=== PATIENT | male | born 1965 | race Hispanic/Latino ===

== ENCOUNTER 2019-08-24 11:12 | Inpatient (IN) | payer BC, OTHER ==
[~2019-08-24] VITALS: Ht 175.3 cm; Wt 99.9 kg
[~2019-08-24 11:12] MED LIST: ASPIRIN81 MG PO; ENALAPRIL MALE2.5 MG PO
[2019-08-24] MEDS ORDERED: ONDANSETRON HCL INJ 2MG/ML 2ML 2 MG/ML VIAL IV STA (11:22)
[2019-08-24] MEDS ORDERED: PANTOPRAZOLE 40 MG 10ML VIAL IV STA (11:22)
[2019-08-24] MEDS ORDERED: SODIUM CHLORIDE 0.9% 1000ML 1,000 ML IV STA ×2 (11:22→13:33)
[2019-08-24] MEDS ORDERED: MORPHINE SULFATE 2 MG/ML SYR 1ML IV STA (11:22)
[2019-08-24 12:06] LABS: BASOPHILS # (AUTO) 0.1 (0.0-0.1); BASOPHILS % 0.3 % (0.0-1.0); EOSINOPHILS # (AUTO) 0.1 (0.0-0.4); EOSINOPHILS % 0.7 % (0.0-6.0); HEMATOCRIT 48.3 % (38.2-49.6); LYMPHOCYTES % 4.5 % (18.0-39.1); MEAN CORPUSCULAR HEMOGLOBIN 27.7 pg (28-32); MEAN CORPUSCULAR HGB CONC 33.1 g/dL (31-35); MEAN CORPUSCULAR VOLUME 83.7 fL (81-99); MONOCYTES % 9.6 % (4.4-11.3); NEUTROPHILS # (AUTO) 17.7 (2.1-6.9); PLATELET COUNT 246 x10e3/uL (140-360); RED BLOOD COUNT 5.77 x10e6/uL (4.3-5.7); RED CELL DISTRIBUTION WIDTH 14.1 % (11.7-14.4)
[2019-08-24 12:38] LABS: PROTHROMBIN TIME 13.8 seconds (11.9-14.5)
[2019-08-24 12:39] LABS: PARTIAL THROMBOPLASTIN TIME 28.6 seconds (23.8-35.5)
[2019-08-24 12:47] LABS: ALBUMIN 3.8 g/dL (3.5-5.0); ALBUMIN/GLOBULIN RATIO 1.1 (0.8-2.0); ANION GAP 16.9 mmol/L (8-16); CALCIUM 9.8 mg/dL (8.4-10.2); CREATININE, SERUM 1.72 mg/dL (0.72-1.25); MAGNESIUM 1.7 MG/DL (1.3-2.1); POTASSIUM 3.9 mmol/L (3.5-5.1)
[2019-08-24 12:53] LABS: CREATINE KINASE MB 1.4 ng/mL (0-5.0)
[2019-08-24] MEDS ORDERED: SODIUM CHLORIDE 0.9% 50ML 50 ML ONE (13:03)
[2019-08-24] MEDS ORDERED: IOPAMIDOL 370 MG/ML 200 ML INFUS..BTL INJ ONE (13:03)
[2019-08-24 13:06] LABS: BILIRUBIN,URINE NEGATIVE (NEGATIVE); CLARITY,URINE CLEAR (CLEAR); COLOR,URINE YELLOW (YELLOW); KETONES,URINE NEGATIVE (NEGATIVE); LEUKOCYTE ESTERASE ,URINE NEGATIVE (NEGATIVE); NITRITE,URINE NEGATIVE (NEGATIVE); PROTEIN,URINE DIPSTICK >=300 (NEGATIVE); URINE UROBILINOGEN 0.2 mg/dL (0.2 - 1)
[2019-08-24 13:17] LABS: BACTERIA,URINE MANY /HPF; EPITHELIAL CELLS,URINE RARE /LPF; RBC,URINE 0-5 /HPF (0-5)
[2019-08-24 13:18] LABS: YEAST,URINE FEW
--- NOTE | 2019-08-24 13:29 | NUR ---
{null, LACTIC DRAWN }
--- NOTE | 2019-08-24 13:33 | Emergency Department Note ---
History of Present Illnes History of Present Illness Chief Complaint: Abdominal Complaints History of Present Illness This is a 54 year old male .c/o abd pain Chief Complaint Comment HERE FOR DIFFUSE ABDOMINAL PAIN TO EPIGASTRIC AREA AND LOWER ABDOMEN. CLIENT REPORTS VOMITING X1 YESTERDAY, DENIES DIARRHEA, SHORTNESS OF BREATH. Historian: Patient Arrival Mode: Car Onset (how long ago): day(s) (yeterday) Radiation: Reports abdomen Severity: moderate Duration (how long): day(s) (yesterday ) Timing of current episode: constant Progression: unchanged Context: Denies recent illness, Denies recent surgery, Denies recent im mobilization, Denies recent travel, Denies trauma/injury, Denies new medications, Denies hx of DVT/PE, Denies non-compliance w/ medications, Denies other Relieving factors: none Exacerbating factors: none Associated symptoms: Denies denies other symptoms, Denies confusion, Denies chest pain, Denies cough, Denies diaphoresis, Denies fever/chills, Denies headaches, Denies loss of appetite, Denies malaise, Denies nausea/vomiting, Den ies rash, Denies seizure, Denies shortness of breath, Denies syncope, Denies weakness, Denies other Treatments prior to arrival: none Past Medical/Family History Physician Review I have reviewed the patient's past medical and family history. Any updates have been documented here. Past Medical History Recent Fever: No Clinical Suspicion of Infectio: No New/Unexplained Change in Ment: No Past Medical History: Hypertension Social History Smoking Cessation: Never Smoker Counseling Performed: No Alcohol Use: None Any Illegal Drug Use: No TB Exposure/Symptoms: No Physically hurt or threatened: No Other Any Pre-Existing Lines (PICC,: No Is patient up to date on immun: Yes Last Flu: UTD Last Pneumovax: UTD Review of Systems Review of Systems Constitutional: Reports no symptoms EENTM: Reports no symptoms Cardiovascular: Reports no symptoms Respiratory: Reports no symptoms Gastrointestinal: Reports abdominal pain Genitourinary: Reports no symptoms Musculoskeletal: Reports no symptoms Integumentary: Reports no symptoms Neurological: Reports no symptoms Psychological: Reports no symptoms Endocrine: Reports no symptoms Hematological/Lymphatic: Reports no symptoms Review of other systems All other systems reviewed and negative. Physical Exam Related Data Allergies: Coded Allergies: No Known Allergies (Unverified , 06/15/15) Triage Vital Signs Vital Signs Date Time Temp Pulse Resp B/P (MAP) Pulse Ox O2 Delivery O2 Flow Rate FiO2 08/24/19 11:21 97.5 118 16 134/89 93 Vital signs reviewed: Yes Physical Exam CONSTITUTIONAL Constitutional: Reports well-developed, Reports well-nourished HENT HENT: Reports normocephalic, Reports atraumatic, Reports oropharynx clear/moist, Reports nose normal HENT L/R: Reports left ext ear normal, Reports right ext ear normal EYES Eyes: Reports PERRL, Reports conjunctivae normal NECK Neck: Reports ROM normal PULMONARY Pulmonary: Reports effort normal, Reports other (noted o2 sat 93% rm air no tachypnea ); Denies breath sounds normal (breath sound diminished at bases mildly) CARDIOVASCULAR Cardiovascular: Reports regular rhythm, Reports heart sounds normal, Reports capillary refill normal, Reports normal rate GASTROINTESTINAL Abdominal: Reports soft; Denies nontender; Reports bowel sounds normal, Reports tender (diffusly ) GENITOURINARY Genitourinary: Reports exam deferred SKIN Skin: Reports warm, Reports dry MUSCULOSKELETAL Musculoskeletal: Reports ROM normal NEUROLOGICAL Neurological: Reports alert, Reports oriented x 3, Reports no gross motor or sensory deficits PSYCHOLOGICAL Psychological: Reports mood/affect normal, Reports judgement normal Results Laboratory Result Diagram: 08/24/19 1132 08/24/19 1132 Laboratory Laboratory Tests Test 08/24/19 14:42 08/24/19 13:29 08/24/19 12:48 08/24/19 12:24 Lactic Acid Level 2.2 mmol/L (0.5-2.0) 3.1 mmol/L (0.5-2.0) Urine Color Yellow (YELLOW) Urine Clarity Clear (CLEAR) Urine pH 6 (5 - 7) Urine Specific [place] >=1.030 (1.010-1.025) Urine Protein >=300 (NEGATIVE) Urine Glucose (UA) 2+ (NEGATIVE) Urine Ketones Negative (NEGATIVE) Urine Blood Large (NEGATIVE) Urine Nitrite Negative (NEGATIVE) Urine Bilirubin Negative (NEGATIVE) Urine Urobilinogen 0.2 mg/dL (0.2 - 1) Urine Leukocyte Esterase Negative (NEGATIVE) Urine RBC 0-5 /HPF (0-5) Urine WBC 11-20 /HPF (0-5) Urine Epithelial Cells Rare /LPF (NONE) Urine Bacteria Many /HPF (NONE) Urine Yeast Few (NONE) Test 08/24/19 11:32 White Blood Count 21.05 x10e3/uL (4.8-10.8) Red Blood Count 5.77 x10e6/uL (4.3-5.7) Hemoglobin 16.0 g/dL (14.0-18.0) Hematocrit 48.3 % (38.2-49.6) Mean Corpuscular Volume 83.7 fL (81-99) Mean Corpuscular Hemoglobin 27.7 pg (28-32) Mean Corpuscular Hemoglobin Concent 33.1 g/dL (31-35) Red Cell Distribution Width 14.1 % (11.7-14.4) Platelet Count 246 x10e3/uL (140-360) Neutrophils (%) (Auto) 84.0 % (38.7-80.0) Lymphocytes (%) (Auto) 4.5 % (18.0-39.1) Monocytes (%) (Auto) 9.6 % (4.4-11.3) Eosinophils (%) (Auto) 0.7 % (0.0-6.0) Basophils (%) (Auto) 0.3 % (0.0-1.0) Neutrophils # (Auto) 17.7 (2.1-6.9) Lymphocytes # (Auto) 1.0 (1.0-3.2) Monocytes # (Auto) 2.0 (0.2-0.8) Eosinophils # (Auto) 0.1 (0.0-0.4) Basophils # (Auto) 0.1 (0.0-0.1) Absolute Immature Granulocyte (auto 0.18 x10e3/uL (0-0.1) Differential Total Cells Counted 100 Neutrophils % (Manual) 79 % (40-74) Lymphocytes % (Manual) 8 % (19-48) Monocytes % (Manual) 9 % (3.4-9.0) Reactive Lymphocytes 4 Platelet Estimate Adequate Platelet Morphology Comment Normal Red Cell Morphology Comment Normal Prothrombin Time 13.8 seconds (11.9-14.5) Prothromb Time International Ratio 1.00 Activated Partial Thromboplast Time 28.6 seconds (23.8-35.5) Sodium Level 133 mmol/L (136-145) Potassium Level 3.9 mmol/L (3.5-5.1) Chloride Level 98 mmol/L (98-107) Carbon Dioxide Level 22 mmol/L (22-29) Anion Gap 16.9 mmol/L (8-16) Blood Urea Nitrogen 22 mg/dL (7-26) Creatinine 1.72 mg/dL (0.72-1.25) Estimat Glomerular Filtration Rate 41 ML/MIN (60-) BUN/Creatinine Ratio 13 (6-25) Glucose Level 186 mg/dL (74-118) Calcium Level 9.8 mg/dL (8.4-10.2) Magnesium Level 1.7 MG/DL (1.3-2.1) Total Bilirubin 1.2 mg/dL (0.2-1.2) Aspartate Amino Transf (AST/SGOT) 18 IU/L (5-34) Alanine Aminotransferase (ALT/SGPT) 39 IU/L (0-55) Alkaline Phosphatase 61 IU/L (40-150) Creatine Kinase 185 IU/L (30-200) Creatine Kinase MB 1.40 ng/mL (0-5.0) Troponin I 0.025 ng/mL (0-0.300) Total Protein 7.4 g/dL (6.5-8.1) Albumin 3.8 g/dL (3.5-5.0) Globulin 3.6 g/dL (2.3-3.5) Albumin/Globulin Ratio 1.1 (0.8-2.0) Triglycerides Level 151 MG/DL (0-149) Cholesterol Level 188 MD/DL (0-199) LDL Cholesterol 117 MG/DL (60-130) HDL Cholesterol 41 MG/DL (40-60) Cholesterol/HDL Ratio 4.6 (3.9-4.7) Amylase Level 682 U/L (25-125) Lipase 664 U/L (8-78) Laboratory Tests Test 08/24/19 14:42 08/24/19 13:29 08/24/19 12:48 08/24/19 12:24 Lactic Acid Level 2.2 mmol/L (0.5-2.0) 3.1 mmol/L (0.5-2.0) Urine Color Yellow (YELLOW) Urine Clarity Clear (CLEAR) Urine pH 6 (5 - 7) Urine Specific [place] >=1.030 (1.010-1.025) Urine Protein >=300 (NEGATIVE) Urine Glucose (UA) 2+ (NEGATIVE) Urine Ketones Negative (NEGATIVE) Urine Blood Large (NEGATIVE) Urine Nitrite Negative (NEGATIVE) Urine Bilirubin Negative (NEGATIVE) Urine Urobilinogen 0.2 mg/dL (0.2 - 1) Urine Leukocyte Esterase Negative (NEGATIVE) Urine RBC 0-5 /HPF (0-5) Urine WBC 11-20 /HPF (0-5) Urine Epithelial Cells Rare /LPF (NONE) Urine Bacteria Many /HPF (NONE) Urine Yeast Few (NONE) Test 08/24/19 11:32 White Blood Count 21.05 x10e3/uL (4.8-10.8) Red Blood Count 5.77 x10e6/uL (4.3-5.7) Hemoglobin 16.0 g/dL (14.0-18.0) Hematocrit 48.3 % (38.2-49.6) Mean Corpuscular Volume 83.7 fL (81-99) Mean Corpuscular Hemoglobin 27.7 pg (28-32) Mean Corpuscular Hemoglobin Concent 33.1 g/dL (31-35) Red Cell Distribution Width 14.1 % (11.7-14.4) Platelet Count 246 x10e3/uL (140-360) Neutrophils (%) (Auto) 84.0 % (38.7-80.0) Lymphocytes (%) (Auto) 4.5 % (18.0-39.1) Monocytes (%) (Auto) 9.6 % (4.4-11.3) Eosinophils (%) (Auto) 0.7 % (0.0-6.0) Basophils (%) (Auto) 0.3 % (0.0-1.0) Neutrophils # (Auto) 17.7 (2.1-6.9) Lymphocytes # (Auto) 1.0 (1.0-3.2) Monocytes # (Auto) 2.0 (0.2-0.8) Eosinophils # (Auto) 0.1 (0.0-0.4) Basophils # (Auto) 0.1 (0.0-0.1) Absolute Immature Granulocyte (auto 0.18 x10e3/uL (0-0.1) Differential Total Cells Counted 100 Neutrophils % (Manual) 79 % (40-74) Lymphocytes % (Manual) 8 % (19-48) Monocytes % (Manual) 9 % (3.4-9.0) Reactive Lymphocytes 4 Platelet Estimate Adequate Platelet Morphology Comment Normal Red Cell Morphology Comment Normal Prothrombin Time 13.8 seconds (11.9-14.5) Prothromb Time International Ratio 1.00 Activated Partial Thromboplast Time 28.6 seconds (23.8-35.5) Sodium Level 133 mmol/L (136-145) Potassium Level 3.9 mmol/L (3.5-5.1) Chloride Level 98 mmol/L (98-107) Carbon Dioxide Level 22 mmol/L (22-29) Anion Gap 16.9 mmol/L (8-16) Blood Urea Nitrogen 22 mg/dL (7-26) Creatinine 1.72 mg/dL (0.72-1.25) Estimat Glomerular Filtration Rate 41 ML/MIN (60-) BUN/Creatinine Ratio 13 (6-25) Glucose Level 186 mg/dL (74-118) Calcium Level 9.8 mg/dL (8.4-10.2) Magnesium Level 1.7 MG/DL (1.3-2.1) Total Bilirubin 1.2 mg/dL (0.2-1.2) Aspartate Amino Transf (AST/SGOT) 18 IU/L (5-34) Alanine Aminotransferase (ALT/SGPT) 39 IU/L (0-55) Alkaline Phosphatase 61 IU/L (40-150) Creatine Kinase 185 IU/L (30-200) Creatine Kinase MB 1.40 ng/mL (0-5.0) Troponin I 0.025 ng/mL (0-0.300) Total Protein 7.4 g/dL (6.5-8.1) Albumin 3.8 g/dL (3.5-5.0) Globulin 3.6 g/dL (2.3-3.5) Albumin/Globulin Ratio 1.1 (0.8-2.0) Triglycerides Level 151 MG/DL (0-149) Cholesterol Level 188 MD/DL (0-199) LDL Cholesterol 117 MG/DL (60-130) HDL Cholesterol 41 MG/DL (40-60) Cholesterol/HDL Ratio 4.6 (3.9-4.7) Amylase Level 682 U/L (25-125) Lipase 664 U/L (8-78) Laboratory Tests Test 08/24/19 12:48 08/24/19 12:24 08/24/19 11:32 Urine Color Yellow (YELLOW) Urine Clarity Clear (CLEAR) Urine pH 6 (5 - 7) Urine Specific [place] >=1.030 (1.010-1.025) Urine Protein >=300 (NEGATIVE) Urine Glucose (UA) 2+ (NEGATIVE) Urine Ketones Negative (NEGATIVE) Urine Blood Large (NEGATIVE) Urine Nitrite Negative (NEGATIVE) Urine Bilirubin Negative (NEGATIVE) Urine Urobilinogen 0.2 mg/dL (0.2 - 1) Urine Leukocyte Esterase Negative (NEGATIVE) Urine RBC 0-5 /HPF (0-5) Urine WBC 11-20 /HPF (0-5) Urine Epithelial Cells Rare /LPF (NONE) Urine Bacteria Many /HPF (NONE) Urine Yeast Few (NONE) White Blood Count 21.05 x10e3/uL (4.8-10.8) Red Blood Count 5.77 x10e6/uL (4.3-5.7) Hemoglobin 16.0 g/dL (14.0-18.0) Hematocrit 48.3 % (38.2-49.6) Mean Corpuscular Volume 83.7 fL (81-99) Mean Corpuscular Hemoglobin 27.7 pg (28-32) Mean Corpuscular Hemoglobin Concent 33.1 g/dL (31-35) Red Cell Distribution Width 14.1 % (11.7-14.4) Platelet Count 246 x10e3/uL (140-360) Neutrophils (%) (Auto) 84.0 % (38.7-80.0) Lymphocytes (%) (Auto) 4.5 % (18.0-39.1) Monocytes (%) (Auto) 9.6 % (4.4-11.3) Eosinophils (%) (Auto) 0.7 % (0.0-6.0) Basophils (%) (Auto) 0.3 % (0.0-1.0) Neutrophils # (Auto) 17.7 (2.1-6.9) Lymphocytes # (Auto) 1.0 (1.0-3.2) Monocytes # (Auto) 2.0 (0.2-0.8) Eosinophils # (Auto) 0.1 (0.0-0.4) Basophils # (Auto) 0.1 (0.0-0.1) Absolute Immature Granulocyte (auto 0.18 x10e3/uL (0-0.1) Prothrombin Time 13.8 seconds (11.9-14.5) Prothromb Time International Ratio 1.00 Activated Partial Thromboplast Time 28.6 seconds (23.8-35.5) Sodium Level 133 mmol/L (136-145) Potassium Level 3.9 mmol/L (3.5-5.1) Chloride Level 98 mmol/L (98-107) Carbon Dioxide Level 22 mmol/L (22-29) Anion Gap 16.9 mmol/L (8-16) Blood Urea Nitrogen 22 mg/dL (7-26) Creatinine 1.72 mg/dL (0.72-1.25) Estimat Glomerular Filtration Rate 41 ML/MIN (60-) BUN/Creatinine Ratio 13 (6-25) Glucose Level 186 mg/dL (74-118) Calcium Level 9.8 mg/dL (8.4-10.2) Magnesium Level 1.7 MG/DL (1.3-2.1) Total Bilirubin 1.2 mg/dL (0.2-1.2) Aspartate Amino Transf (AST/SGOT) 18 IU/L (5-34) Alanine Aminotransferase (ALT/SGPT) 39 IU/L (0-55) Alkaline Phosphatase 61 IU/L (40-150) Creatine Kinase 185 IU/L (30-200) Creatine Kinase MB 1.40 ng/mL (0-5.0) Troponin I 0.025 ng/mL (0-0.300) Total Protein 7.4 g/dL (6.5-8.1) Albumin 3.8 g/dL (3.5-5.0) Globulin 3.6 g/dL (2.3-3.5) Albumin/Globulin Ratio 1.1 (0.8-2.0) Amylase Level 682 U/L (25-125) Lipase 664 U/L (8-78) Laboratory Tests Test 08/24/19 12:48 08/24/19 12:24 08/24/19 11:32 Urine Color Yellow (YELLOW) Urine Clarity Clear (CLEAR) Urine pH 6 (5 - 7) Urine Specific [place] >=1.030 (1.010-1.025) Urine Protein >=300 (NEGATIVE) Urine Glucose (UA) 2+ (NEGATIVE) Urine Ketones Negative (NEGATIVE) Urine Blood Large (NEGATIVE) Urine Nitrite Negative (NEGATIVE) Urine Bilirubin Negative (NEGATIVE) Urine Urobilinogen 0.2 mg/dL (0.2 - 1) Urine Leukocyte Esterase Negative (NEGATIVE) Urine RBC 0-5 /HPF (0-5) Urine WBC 11-20 /HPF (0-5) Urine Epithelial Cells Rare /LPF (NONE) Urine Bacteria Many /HPF (NONE) Urine Yeast Few (NONE) White Blood Count 21.05 x10e3/uL (4.8-10.8) Red Blood Count 5.77 x10e6/uL (4.3-5.7) Hemoglobin 16.0 g/dL (14.0-18.0) Hematocrit 48.3 % (38.2-49.6) Mean Corpuscular Volume 83.7 fL (81-99) Mean Corpuscular Hemoglobin 27.7 pg (28-32) Mean Corpuscular Hemoglobin Concent 33.1 g/dL (31-35) Red Cell Distribution Width 14.1 % (11.7-14.4) Platelet Count 246 x10e3/uL (140-360) Neutrophils (%) (Auto) 84.0 % (38.7-80.0) Lymphocytes (%) (Auto) 4.5 % (18.0-39.1) Monocytes (%) (Auto) 9.6 % (4.4-11.3) Eosinophils (%) (Auto) 0.7 % (0.0-6.0) Basophils (%) (Auto) 0.3 % (0.0-1.0) Neutrophils # (Auto) 17.7 (2.1-6.9) Lymphocytes # (Auto) 1.0 (1.0-3.2) Monocytes # (Auto) 2.0 (0.2-0.8) Eosinophils # (Auto) 0.1 (0.0-0.4) Basophils # (Auto) 0.1 (0.0-0.1) Absolute Immature Granulocyte (auto 0.18 x10e3/uL (0-0.1) Prothrombin Time 13.8 seconds (11.9-14.5) Prothromb Time International Ratio 1.00 Activated Partial Thromboplast Time 28.6 seconds (23.8-35.5) Sodium Level 133 mmol/L (136-145) Potassium Level 3.9 mmol/L (3.5-5.1) Chloride Level 98 mmol/L (98-107) Carbon Dioxide Level 22 mmol/L (22-29) Anion Gap 16.9 mmol/L (8-16) Blood Urea Nitrogen 22 mg/dL (7-26) Creatinine 1.72 mg/dL (0.72-1.25) Estimat Glomerular Filtration Rate 41 ML/MIN (60-) BUN/Creatinine Ratio 13 (6-25) Glucose Level 186 mg/dL (74-118) Calcium Level 9.8 mg/dL (8.4-10.2) Magnesium Level 1.7 MG/DL (1.3-2.1) Total Bilirubin 1.2 mg/dL (0.2-1.2) Aspartate Amino Transf (AST/SGOT) 18 IU/L (5-34) Alanine Aminotransferase (ALT/SGPT) 39 IU/L (0-55) Alkaline Phosphatase 61 IU/L (40-150) Creatine Kinase 185 IU/L (30-200) Creatine Kinase MB 1.40 ng/mL (0-5.0) Troponin I 0.025 ng/mL (0-0.300) Total Protein 7.4 g/dL (6.5-8.1) Albumin 3.8 g/dL (3.5-5.0) Globulin 3.6 g/dL (2.3-3.5) Albumin/Globulin Ratio 1.1 (0.8-2.0) Amylase Level 682 U/L (25-125) Lipase 664 U/L (8-78) Lab results reviewed: Yes Imaging Impressions IMPRESSION: 1. Bibasilar atelectasis with minimal left pleural effusion. 2. Acute pancreatitis without evidence of pseudocyst formation. 3. Hepatomegaly. Signed by: Santosh Walker on 08/24/2019 1:56 PM Dictated By: SANTOSH WALKER MD [id number] Transcribed By: JOSE ALBERTO on 08/24/19 1356 IMPRESSION: 1. Bibasilar atelectasis with minimal left pleural effusion. 2. Acute pancreatitis without evidence of pseudocyst formation. 3. Hepatomegaly. 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 Date: Aug 24, 2019 Time: 17:00 Prior ECG tracings: reviewed Rhythm: sinus tachycardia Rate: tachycardia BPM: 113 QRS axis: normal Assessment & Plan Medical Decision Making MDM This is a 54 year old male .c/o abd pain epigastirc pain n/v x 1 on set yesterday D/D pne covid cholecystitis pancreatitis acs gastritis sbo Reassessment Reassessment pt meets SIRs criteria hr 118 wbc 21 @1134 pt medicated w/ zosyn ordered 1334 suspect sepsis - source abd severe sepsis @ 1358 lactic 3.1 ns bolus given @ 1503 2nd lactic 2.2 discussed lab rad results plan of care w/pt and need for admit spoke w/ Dr Engle will admit spoke w/ Dr Daria Quevedo will consult Assessment & Plan Final Impression: (1) Pancreatitis (2) UTI (urinary tract infection) Depart Disposition: ADMITTED Last Vital Signs Date Time Temp Pulse Resp B/P (MAP) Pulse Ox O2 Delivery O2 Flow Rate FiO2 08/24/19 12:07 104 18 126/81 96 08/24/19 11:21 97.5 Home Meds Reported Medications Aspirin (ASPIRIN) 81 Mg Tab.chew, 81 MG PO DAILY 06/16/15 Enalapril Maleate (ENALAPRIL MALEATE) 2.5 Mg Tablet, 5 MG PO BID 06/15/15 Medications in the ED Pantoprazole Sodium 40 mg ONCE STAT IV Last administered on 08/24/19at 12:11; Admin Dose 40 MG; Start 08/24/19 at 11:22; Stop 08/24/19 at 11:43; Status DC Morphine Sulfate 4 mg ONCE STAT IV Last administered on 08/24/19at 12:11; Admin Dose 4 MG; Start 08/24/19 at 11:22; Stop 08/24/19 at 11:43; Status DC Ondansetron HCl 4 mg ONCE STAT IV Last administered on 08/24/19at 12:11; Admin Dose 4 MG; Start 08/24/19 at 11:22; Stop 08/24/19 at 11:43; Status DC Sodium Chloride 1,000 ml @ 0 mls/hr Q0M STAT IV Last administered on 08/24/19at 12:11; Admin Dose 1,000 MLS/HR; Start 08/24/19 at 11:22; Stop 08/24/19 at 11:25; Status DC Sodium Chloride 50 ml @ ud STK-MED ONCE .ROUTE ; Start 08/24/19 at 13:03; Stop 08/24/19 at 12:58; Status DC Iopamidol 74,000 mg STK-MED ONCE INJ ; Start 08/24/19 at 13:03; Stop 08/24/19 at 12:58; Status DC JAME JAMESON MD Aug 24, 2019 13:33
[2019-08-24] MEDS: PIPER-TAZ 3.375 GM 50 ML IV SCH ×2 (13:37→23:29)
[2019-08-24 13:43] LABS: LYMPHOCYTES % (MANUAL) 8 % (19-48); MONOCYTES % (MANUAL) 9 % (3.4-9.0); NEUTROPHILS % (MANUAL) 79 % (40-74); PLATELET ESTIMATE ADEQUATE; PLATELET MORPHOLOGY COMMENT NORMAL; RBC MORPHOLOGY COMMENT NORMAL
--- NOTE | 2019-08-24 14:00 | Diagnostic Imaging Report ---
CT of the chest, abdomen, and pelvis, with contrast, 08/24/2019. History: Shortness of breath, abdominal pain, nausea and vomiting. Comparison: None available. Technique: Technique: Multidetector CT scanning of the chest, abdomen, and pelvis was performed from the level of the lung apices to the inferior pubic rami after intravenous administration of contrast. Coronal and sagittal multiplanar reformations were obtained. RADIATION DOSE: Total DLP: 810 mGy*cm Dose modulation, iterative reconstruction, and/or weight based adjustment of the mA/kV was utilized to reduce the radiation dose to as low as reasonably achievable. Discussion: CHEST: The atria, ventricles, aorta, and main pulmonary artery are normal in size. The thyroid is unremarkable. There is no evidence of axillary or mediastinal adenopathy. Calcified mediastinal nodes are present. Linear opacities are present at the lung bases with minimal left pleural effusion. There is no evidence of consolidation or suspicious nodule. ABDOMEN: There is ill-defined low-density in the midportion of the pancreas body with adjacent fat stranding and peripancreatic fluid which extends along the paracolic gutters into the pelvis. There is no focal fluid collection. The pancreas enhances normally. The adjacent splenic artery and vein are patent. Portacaval lymph nodes are present measuring up to 1 cm. Liver is enlarged measuring over 20 cm in length. The gallbladder, biliary tree, spleen, adrenal glands, and kidneys are normal. The hepatic vein, portal vein, and splenic vein are patent. The abdominal aorta is within normal limits for size. There is no bowel dilatation. There is no evidence of adenopathy or free fluid. PELVIS: The bladder, prostate, and seminal vesicles are normal in appearance. There is no evidence of free fluid or adenopathy. BONES AND SOFT TISSUES: Degenerative changes are present throughout the lumbar spine without evidence of lytic or sclerotic lesion. IMPRESSION: 1. Bibasilar atelectasis with minimal left pleural effusion. 2. Acute pancreatitis without evidence of pseudocyst formation. 3. Hepatomegaly. Signed by: Rufus Walker on 08/24/2019 1:56 PM
[2019-08-24] MEDS ORDERED: SODIUM CHLORIDE 0.9% 500ML 500 ML IV ONE (14:15)
[2019-08-24] MEDS ORDERED: MORPHINE SULFATE 2 MG/ML SYR 1ML IV PRN (14:30)
[2019-08-24 15:06] LABS: CHOL/HDL RATIO 4.6 (3.9-4.7)
[2019-08-24] MEDS: METRONIDAZOLE 500MG/NS 100ML 100 ML IV SCH ×2 (15:30→21:10)
[2019-08-24] MEDS: SODIUM CHLORIDE 0.9% 1000ML 1,000 ML IV SCH ×2 (15:30→21:10)
--- OUTSIDE RECORDS SUMMARY | 2019-08-24 15:45 | XMS REPORT | Continuity of Care Document ---
Author Author [facility] Organization [facility] Address [address] [place] [id number] Phone Unavailable Care Team Providers Care Case Folder Name Role Phone Natalie JAMESON Attphys Unavailable Problems This patient has no known problems. Allergies, Adverse Reactions, Alerts This patient has no known allergies or adverse reactions. Medications This patient has no known medications. Procedures This patient has no known procedures. Results Test Description Test Time Test Comments Results Result Comments Source CT ABDOMEN/PELVIS W 2019-08-24 13:37:00 [place] [address] Patient Name: MISAEL BLACKMAN MR #: [id number] : 1965 Age/Sex: 54/M Req #: [id number] Adm Physician: Ordered by: JAME JAMESON MD Report #: [id number] Location: ER Room/Bed: Procedure: [id number] CT/CT ABDOMEN/PELVIS W Exam Date: 08/24/19 Exam Time: 1310 REPORT STATUS: Signed CT of the chest, abdomen, and pelvis, with contrast, 08/24/2019. History: Shortness of breath, abdominal pain, nausea and vomiting. Comparison: None available. Technique: Technique: Multidetector CT scanning of the chest, abdomen, and pe lvis was performed from the level of the lung apices to the inferior pubic rami after intravenous administration of contrast. Coronal and sagittal multiplanar reformations were obtained. RADIATION DOSE: Total DLP: 810 mGy*cm Dose modulation, iterative reconstruction, and/or weight based adjustment of the mA/kV was utilized to reduce the radiation dose to as low as reasonably achievable. Discussion: CHEST: The atria, ventricles, aorta, and main pulmonary artery are normal in size. The thyroid is unremarkable. There is no evidence of axillary or mediastinal adenopathy. Calcified mediastinal nodes are present. Linear opacities are present at the lung bases with minimal left pleural effusion. There is no evidence of consolidation or suspicious nodule. ABDOMEN: There is ill-defined low- density in the midportion of the pancreas body with adjacent fat stranding and peripancreatic fluid which extends along the paracolic gutters into the pelvis. There is no focal fluid collection. The pancreas enhances normally. The adjacent splenic artery and vein are patent. Portacaval lymph nodes are present measuring up to 1 cm. Liver is enlarged measuring over 20 cm in length. The gallbladder, biliary tree, spleen, adrenal glands, and kidneys are normal. The hepatic vein, portal vein, and splenic vein are patent. The abdominal aorta is within normal limits for size. There is no bowel dilatation. There is no evidence of adenopathy or free fluid. PELVIS: The bladder, prostate, and seminal vesicles are normal in appearance. There is no evidence of free fluid or adenopathy. BONES AND SOFT TISSUES: Degenerative changes are present throughout the lumbar spine without evidence of lytic or sclerotic lesion. IMPRESSION: 1. Bibasilar atelectasis with minimal left pleural effusion. 2. Acute pancreatitis without evidence of pseudocyst formation. 3. Hepatomegaly. Signed by: Rufus Walker on 08/24/2019 1:56 PM Dictated By: RUFUS WALKER MD [id number] Transcribed By: JOSE ALBERTO on 08/24/19 135 COPY TO: JAME JAMESON MD CT CHEST W 2019-08-24 13:37:00 [place] [address] Patient Name: MISAEL BLACKMAN MR #: [id number] : 1965 Age/Sex: 54/M Req #: [id number] Adm Physician: Ordered by: JAME JAMESON MD Report #: [id number] Location: ER Room/Bed: Procedure: [id number] CT/CT CHEST W Exam Date: 08/24/19 Exam Time: 1310 REPORT STATUS: Signed CT of the chest, abdomen, and pelvis, with contrast, 08/24/2019. History: Shortness of breath, abdominal pain, nausea and vomiting. Comparison: None available. Technique: Technique: Multidetector CT scanning of the chest, abdomen, and pelvis was pe rformed from the level of the lung apices to the inferior pubic rami after intravenous administration of contrast. Coronal and sagittal multiplanar reformations were obtained. RADIATION DOSE: Total DLP: 810 mGy*cm Dose modulation, iterative reconstruction, and/or weight based adjustment of the mA/kV was utilized to reduce the radiation dose to as low as reasonably achievable. Discussion: CHEST: The atria, ventricles, aorta, and main pulmonary artery are normal in size. The thyroid is unremarkable. There is no evidence of axillary or mediastinal adenopathy. Calcified mediastinal nodes are present. Linear opacities are present at the lung bases with minimal left pleural effusion. There is no evidence of consolidation or suspicious nodule. ABDOMEN: There is ill-defined low-density in the midportion of the pancreas body with adjacent fat stranding and peripancreatic fluid which extends along the paracolic gutters into the pelvis. There is no focal fluid collection. The pancreas enhances normally. The adjacent splenic artery and vein are patent. Portacaval lymph nodes are present measuring up to 1 cm. Liver is enlarged measuring over 20 cm in length. The gallbladder, biliary tree, spleen, adrenal glands, and kidneys are normal. The hepatic vein, portal vein, and splenic vein are patent. The abdominal aorta is within normal limits for size. There is no bowel dilatation. There is no evidence of adenopathy or free fluid. PELVIS: The bladder, prostate, and seminal vesicles are normal in appearance. There is no evidence of free fluid or adenopathy. BONES AND SOFT TISSUES: Degenerative changes are present throughout the lumbar spine without evidence of lytic or sclerotic lesion. IMPRESSION: 1. Bibasilar atelectasis with minimal left pleural effusion. 2. Acute pancreatitis without evidence of pseudocyst formation. 3. Hepatomegaly. Signed by: Rufus Walker on 08/24/2019 1:56 PM Dictated By: RUFUS WALKER MD 1357 Transcribed By: JOSE ALBERTO on 08/24/19 1354 COPY TO: JAME JAMESON MD
--- NOTE | 2019-08-24 16:29 | NUR ---
{null, ULTRASOUND GALLBLADDER AT BEDSIDE }
--- NOTE | 2019-08-24 17:05 | Diagnostic Imaging Report ---
Right upper quadrant abdominal ultrasound, 08/24/2019. History: Abdominal pain. Comparison: CT from earlier today. Discussion: Transverse and longitudinal images of the right upper quadrant of the abdomen were obtained demonstrating a liver of increased size and echogenicity measuring 19.4 cm in length. There is no evidence of a focal hepatic mass. The portal vein is patent with hepatopetal flow and is within normal limits measuring 12 mm in diameter. The biliary tree is within normal limits with the common bile duct measuring 3 mm in diameter. The gallbladder is normal without evidence of shadowing stones, wall thickening, or pericholecystic fluid. The sonographic Thomson's sign was negative. The right kidney is normal in size and echogenicity without evidence of hydronephrosis, stones, or mass and measures 11.4 cm in length. The pectus was obscured by overlying bowel gas. The abdominal aorta is within normal limits. There is minimal free fluid. IMPRESSION: 1. Hepatomegaly with diffuse fatty infiltration of the liver. 2. No evidence of cholelithiasis. 3. Pancreas not visible. Signed by: Rufus Walker on 08/24/2019 5:01 PM
--- NOTE | 2019-08-24 17:51 | NUR ---
{null, 2nd SET CARDIACS COMPLETED }
[2019-08-24] MEDS ORDERED: METRONIDAZOLE 500MG/NS 100ML IV SCH (18:00)
--- NOTE | 2019-08-24 18:05 | NUR ---
{null, Received report from Jen BRAVO- Patient arrive to the unit @ 1805. Patient in stable condition, no s/s of distress noted. No pain voiced. Telemetry applied. Iv fluids infusion asymptomatic and patient, transparent dressing intact C/D/I. Bed in lowest position and locked. }
[2019-08-24 18:51] VITALS: BP 171/84
[2019-08-24 18:58] LABS: CREATINE KINASE MB 1.3 ng/mL (0-5.0)
--- NOTE | 2019-08-24 19:13 | NUR ---
{null, Completed bedside report and rounding with oncoming night nurse. Patient in stable condition, no s/s of distress noted. No pain voiced. Telemetry applied. IV fluids infusing, site asymptomatic and patent, dressing C/D/I. Bed in lowest position and locked. Call light within reach. }
--- NOTE | 2019-08-24 19:24 | NUR ---
{null, Return call from Dr Ford regarding new consult for acute pancreatitis. Will see in am }
[2019-08-24 20:03] VITALS: BP 141/82
[2019-08-24 20:08] VITALS: BP 141/82
[2019-08-24 21:00] VITALS: BP 141/82
[2019-08-24 23:28] VITALS: BP 147/85
--- NOTE | 2019-08-25 01:06 | History and Physical ---
CHIEF COMPLAINT: Abdominal pain. In the emergency room, the patient found to have acute pancreatitis diagnosed with CT scan and also amylase and lipase elevation. HISTORY OF PRESENT ILLNESS: The patient is a 54--year-old male with dyslipidemia and hypertension, not on any cholesterol medication, but diet control. Triglycerides sometime go up in the 400s, but recently more in the 150-160. Ultrasound in the emergency room showed hepatomegaly with diffuse fatty infiltrate of the liver. No evidence of cholelithiasis. The patient also had an abdominal and pelvic CT scan showed that he had bilateral atelectasis with minimal left pleural effusion with acute pancreatitis without evidence of pseudocyst formation. He does have hepatomegaly. His lab work showed WBC of 21,000. The patient's amylase and lipase are 682 and 664 respectively. Lactic acid 3.1. The patient did receive IV antibiotics. He is getting IV fluid rehydration. PAST MEDICAL HISTORY: Dyslipidemia, hypertension. PAST SURGICAL HISTORY: Noncontributory. SOCIAL HISTORY: The patient is a social drinker. No smoking. ALLERGIES: NO KNOWN ALLERGIES. HOME MEDICATIONS: Enalapril. PHYSICAL EXAMINATION: VITAL SIGNS: Temperature is 98, blood pressure 134/89, pulse rate is 118, respirations 20. GENERAL: The patient is not in acute distress. He is awake, comfortable. HEENT: Normocephalic and atraumatic. Anicteric. NECK: Supple grossly. PULMONARY: Diminished breath sounds bilaterally. CARDIOVASCULAR: Tachycardia. ABDOMEN: Generalized tenderness without any guarding or rebound. EXTREMITIES: No cyanosis or edema. NEUROLOGIC: No focal deficit. LABORATORY DATA: Sodium is 133, potassium 3.9, chloride 98, bicarb 22, BUN 22, creatinine 1.7, glucose 186. Lactic acid is 3.1, AST 18, ALT 39, alkaline phosphatase 61. Troponins negative. Triglycerides 151, total cholesterol is 188, LDL is 117, amylase 682, lipase is 664. Urinalysis; many bacteria, few yeast, but negative leukocyte esterase with wbc urine of 11-20. Serology, coronavirus PCR is pending. IMAGING: As mentioned above. CT scan, small bilateral atelectasis and pleural effusion. Abdominal and pelvic CT showed consistent with acute pancreatitis and gallbladder ultrasound showed that the patient has no gallstones, but does have hepatomegaly with diffuse fatty infiltrate of the liver. IMPRESSION: 1. Acute pancreatitis. 2. Fatty liver. 3. Hepatomegaly. 4. Dyslipidemia. PLAN: 1. Consult Gastroenterology. 2. Consult surgery. 3. MRCP. 4. IV antibiotics. We will repeat lab work. Increase IV fluids to 200 mL/hour. We will obtain lab work in the morning. The patient is otherwise stable at this time. MD ZEV Johnston/VIOLET /[id number]
[2019-08-25] MEDS: METRONIDAZOLE 500MG/NS 100ML 100 ML IV SCH ×4 (03:11→20:38)
[2019-08-25] MEDS: SODIUM CHLORIDE 0.9% 1000ML 1,000 ML IV SCH ×4 (03:11→20:32)
[2019-08-25 04:41] VITALS: BP 155/81
[2019-08-25] MEDS: PIPER-TAZ 3.375 GM 50 ML IV SCH ×4 (05:06→23:13)
[2019-08-25 05:56] LABS: BASOPHILS % 0.1 % (0.0-1.0); EOSINOPHILS % 0.1 % (0.0-6.0); HEMATOCRIT 37.3 % (38.2-49.6); LYMPHOCYTES # (AUTO) 0.8 (1.0-3.2); LYMPHOCYTES % 5.1 % (18.0-39.1); MEAN CORPUSCULAR HEMOGLOBIN 28.3 pg (28-32); MEAN CORPUSCULAR HGB CONC 32.7 g/dL (31-35); MEAN CORPUSCULAR VOLUME 86.5 fL (81-99); MONOCYTES # (AUTO) 1.8 (0.2-0.8); MONOCYTES % 12.2 % (4.4-11.3); NEUTROPHILS # (AUTO) 12.1 (2.1-6.9); PLATELET COUNT 149 x10e3/uL (140-360); RED BLOOD COUNT 4.31 x10e6/uL (4.3-5.7); RED CELL DISTRIBUTION WIDTH 13.9 % (11.7-14.4)
[2019-08-25 06:04] LABS: HEMOGLOBIN 12.2 g/dL (14.0-18.0)
[2019-08-25 06:22] LABS: ALANINE AMINOTRANSFERASE 22 IU/L (0-55); ALBUMIN 2.7 g/dL (3.5-5.0); ALBUMIN/GLOBULIN RATIO 0.9 (0.8-2.0); ALKALINE PHOSPHATASE 42 IU/L (40-150); AMYLASE 268 U/L (25-125); ANION GAP 12.7 mmol/L (8-16); BLOOD UREA NITROGEN 15 mg/dL (7-26); BUN/CREATININE RATIO 15 (6-25); CALCIUM 7.7 mg/dL (8.4-10.2); CARBON DIOXIDE 22 mmol/L (22-29); CHLORIDE 105 mmol/L (98-107); CREATININE, SERUM 0.97 mg/dL (0.72-1.25); EST GLOMERULAR FILTRATION RATE > 60 ML/MIN (60-); GLUCOSE 159 mg/dL (74-118); LIPASE 190 U/L (8-78); POTASSIUM 3.7 mmol/L (3.5-5.1); SODIUM 136 mmol/L (136-145)
[2019-08-25 06:46] LABS: CREATINE KINASE MB 0.5 ng/mL (0-5.0)
--- NOTE | 2019-08-25 07:00 | NUR ---
{null, Received bedside shift report from off going night nurse. Patient in stable condition, no s/s of distress noted. no pain voiced. telemetry applied. Bed in lowest position and locked. Call light within reach. }
--- NOTE | 2019-08-25 07:06 | NUR ---
{null, Bedside report and walking rounds completed with on coming nurse. Patient in bed with call light within reach. No issues or concerns noted. }
[2019-08-25 07:42] VITALS: BP 157/73
[2019-08-25 07:49] VITALS: BP 157/73
--- NOTE | 2019-08-25 13:35 | Diagnostic Imaging Report ---
TECHNIQUE: MRI of the abdomen and MRCP WITHOUT intravenous contrast. 3-D volume reconstructions were obtained to evaluate the biliary ductal system. INDICATION: 54-year-old man with acute pancreatitis and acute kidney injury. COMPARISON: Chest, abdomen, and pelvis CT as well as abdomen ultrasound 08/24/2019. FINDINGS: ABSENCE OF INTRAVENOUS CONTRAST DECREASES SENSITIVITY FOR DETECTION OF FOCAL LESIONS AND VASCULAR PATHOLOGY. LOWER THORAX: Trace bilateral pleural effusions, left greater than right, with adjacent relaxation atelectasis in both lower lobes. LIVER: Moderate decrease in signal intensity of the liver on opposed phase imaging, consistent with hepatic steatosis. No focal hepatic lesions. BILIARY: Gallbladder is unremarkable. Intrahepatic and extrahepatic bile ducts are normal in caliber without definite filling defect. SPLEEN: Spleen is borderline prominent and measures 13 cm in the craniocaudal dimension. PANCREAS: Edema/nonencapsulated fluid surrounds the pancreas and tracks along the left anterior fascia and lateroconal fascia. No focal masses or ductal dilatation. ADRENALS: No adrenal nodules. KIDNEYS/URETERS: No hydronephrosis or solid mass lesions. PERITONEUM/RETROPERITONEUM: Trace ascites in the visualized abdomen. LYMPH NODES: No lymphadenopathy. VESSELS: Unremarkable. GI TRACT: No distention or wall thickening. BONES AND SOFT TISSUES: Unremarkable. IMPRESSION: Acute pancreatitis. No organized peripancreatic fluid collection. No biliary ductal dilatation or definite choledocholithiasis. Moderate hepatic steatosis. Borderline splenomegaly. Signed by: Gina Clarke MD on 08/25/2019 1:31 PM
[2019-08-25] MEDS: MORPHINE SULFATE INJ 4 MG/ML INJ 1ML IV PRN ×3 (14:47→23:45)
[2019-08-25] MEDS: ONDANSETRON HCL INJ 2MG/ML 2ML 2 MG/ML VIAL IV PRN ×3 (14:47→23:45)
[2019-08-25 15:08] LABS: CREATINE KINASE MB 0.6 ng/mL (0-5.0)
[2019-08-25 15:25] VITALS: BP 167/92
[2019-08-25 19:57] VITALS: BP 158/83
[2019-08-25 20:28] VITALS: BP 158/83
[2019-08-26] VITALS (7 sets, daily range): BP systolic 157–165; BP diastolic 81–91
--- NOTE | 2019-08-26 00:25 | Consultation ---
DATE OF CONSULTATION: 08/25/2019 HISTORY OF PRESENT ILLNESS: This is a 54-year-old very nice gentleman, who only has history of hypertension and also history of dyslipidemia, presented to the hospital because of abdominal pain associated with some nausea and vomiting. The patient was found to have acute pancreatitis. His ultrasound, however, was negative for gallstones, and his MRCP was also negative. He also was found to have hepatomegaly and fatty liver; however, his liver enzymes are normal. He denies any history of alcohol abuse. PAST MEDICAL HISTORY: Significant for history of hypertension and dyslipidemia. ALLERGIES: NONE. MEDICATIONS: At home, including enalapril. SOCIAL HISTORY: He is a social drinker. FAMILY HISTORY: Noncontributory. REVIEW OF SYSTEMS: Denies any chest pain or shortness of breath. Denies any dysphagia or odynophagia. Denies any dysuria, hematuria, or any kind of syncopal episode. PHYSICAL EXAMINATION: GENERAL: The patient is awake, alert, appears to be stable, in no acute distress at this point. VITAL SIGNS: Afebrile currently with stable vital signs. HEAD, EYES, EARS, NOSE, AND THROAT: Normocephalic, atraumatic. Sclerae are anicteric. NECK: Supple. HEART: Regular. LUNGS: Clear. ABDOMEN: Soft. There is some tenderness in the epigastric area. There is no rebound or mass. EXTREMITIES: No clubbing or cyanosis. LABORATORY DATA: On admission, lipase of 654 and amylase 682. BUN 22 and creatinine 1.72. Lactic acid 3.1. Today is down to amylase of 268 and lipase of 190. normal. RADIOGRAPHIC DATA: MRCP is negative for bile duct stones. Evidence of fatty liver. The CT shows acute pancreatitis and hepatomegaly. Gallbladder ultrasound shows hepatomegaly, fatty liver with gallstones. IMPRESSION: 1. Acute pancreatitis. 2. possibility of deep ulcers. 3. Hypertension. 4. Dyslipidemia. RECOMMENDATIONS: Continue current care at this point. Keep n.p.o. We will proceed with EGD tomorrow and follow labs and clinically. MD PUSHPA Jimenez/MODL /[id number] cc: MD Darrell Sarmiento MD
[2019-08-26] MEDS: SODIUM CHLORIDE 0.9% 1000ML 1,000 ML IV SCH ×3 (03:56→14:53)
[2019-08-26] MEDS: METRONIDAZOLE 500MG/NS 100ML 100 ML IV SCH ×4 (03:56→20:51)
[2019-08-26] MEDS: PIPER-TAZ 3.375 GM 50 ML IV SCH ×3 (06:08→18:19)
--- NOTE | 2019-08-26 06:15 | NUR ---
{null, patient left unit to OR }
[2019-08-26] MEDS ORDERED: PROPOFOL IV EMULSION 10 MG/ML 20 ML VIAL ONE (18:11)
[2019-08-26] MEDS: MORPHINE SULFATE INJ 4 MG/ML INJ 1ML IV PRN (18:19)
[2019-08-26] MEDS: ONDANSETRON HCL INJ 2MG/ML 2ML 2 MG/ML VIAL IV PRN (18:19)
[2019-08-26] MEDS ORDERED: HYDRALAZINE HCL 20 MG/ML VIAL IV PRN (19:00)
[2019-08-26] MEDS ORDERED: NIFEDIPINE CR 30 MG TAB PO ONE (19:50)
[2019-08-27] VITALS (9 sets, daily range): BP systolic 120–153; BP diastolic 61–80
[2019-08-27] MEDS: SODIUM CHLORIDE 0.9% 1000ML 1,000 ML IV SCH ×2 (00:03→09:31)
[2019-08-27] MEDS: PIPER-TAZ 3.375 GM 50 ML IV SCH ×5 (00:03→23:00)
[2019-08-27] MEDS: METRONIDAZOLE 500MG/NS 100ML 100 ML IV SCH ×2 (03:58→09:00)
[2019-08-27] MEDS: NIFEDIPINE CR 30 MG TAB PO SCH (05:01)
[2019-08-27 05:38] LABS: BASOPHILS # (AUTO) 0.1 (0.0-0.1); BASOPHILS % 0.3 % (0.0-1.0); EOSINOPHILS # (AUTO) 0.2 (0.0-0.4); EOSINOPHILS % 1.1 % (0.0-6.0); HEMATOCRIT 37.1 % (38.2-49.6); LYMPHOCYTES # (AUTO) 0.8 (1.0-3.2); LYMPHOCYTES % 5.5 % (18.0-39.1); MEAN CORPUSCULAR HEMOGLOBIN 27.4 pg (28-32); MEAN CORPUSCULAR HGB CONC 32.3 g/dL (31-35); MEAN CORPUSCULAR VOLUME 84.7 fL (81-99); MONOCYTES # (AUTO) 1.6 (0.2-0.8); MONOCYTES % 10.7 % (4.4-11.3); NEUTROPHILS # (AUTO) 11.9 (2.1-6.9); NEUTROPHILS % 81.6 % (38.7-80.0); PLATELET COUNT 232 x10e3/uL (140-360); RED BLOOD COUNT 4.38 x10e6/uL (4.3-5.7); RED CELL DISTRIBUTION WIDTH 13.4 % (11.7-14.4)
[2019-08-27 06:12] LABS: ALANINE AMINOTRANSFERASE 20 IU/L (0-55); ALBUMIN 2.8 g/dL (3.5-5.0); ALBUMIN/GLOBULIN RATIO 0.8 (0.8-2.0); ALKALINE PHOSPHATASE 58 IU/L (40-150); ANION GAP 14.2 mmol/L (8-16); CALCIUM 7.8 mg/dL (8.4-10.2); CARBON DIOXIDE 26 mmol/L (22-29); CHLORIDE 100 mmol/L (98-107); CREATININE, SERUM 0.83 mg/dL (0.72-1.25); EST GLOMERULAR FILTRATION RATE > 60 ML/MIN (60-); GLUCOSE 125 mg/dL (74-118); LIPASE 69 U/L (8-78); POTASSIUM 3.2 mmol/L (3.5-5.1); SODIUM 137 mmol/L (136-145)
[2019-08-27 06:49] LABS: BLOOD UREA NITROGEN 8 mg/dL (7-26); BUN/CREATININE RATIO 10 (6-25)
--- NOTE | 2019-08-27 07:10 | NUR ---
{null, RCD PT AT BED PT IS ALERT AND ORIENTED RESTING ON BED IV PATENT AND RUNNING GOOD 200 ML /HR BED LOW AND LOCKED CALL LIGHT IN REACH }
--- NOTE | 2019-08-27 09:35 | NUR ---
{null, Pt. expressed no spiritual or emotional concerns. [facility] provided hospitality and information on how to reach post production assistant, if needed. No need to follow at this time. EHSAN ZHENG [facility] Spiritual [facility] Department O: [phone] }
[2019-08-27] MEDS: KCL 40MEQ/0.9% SOD CHL 1,000 ML IV SCH ×2 (10:14→23:03)
--- NOTE | 2019-08-27 18:46 | NUR ---
{null, pt resting on bed bed side report given to oncoming nurse }
--- NOTE | 2019-08-27 19:05 | NUR ---
{null, RECEIVED REPORT FROM DAY NURSE. PATIENT IS RESTING IN THE BED. BED IS IN LOWEST POSITION AND CALL LIGHT IS WITHIN REACH. WILL CONTINUE TO MONITOR PATIENT. }
[2019-08-27] MEDS: MORPHINE SULFATE INJ 4 MG/ML INJ 1ML IV PRN (21:53)
[2019-08-27] MEDS: ONDANSETRON HCL INJ 2MG/ML 2ML 2 MG/ML VIAL IV PRN (21:53)
[2019-08-28 00:07] VITALS: BP 137/70
[2019-08-28 04:00] VITALS: BP 140/80
[2019-08-28] MEDS: NIFEDIPINE CR 30 MG TAB PO SCH (05:21)
[2019-08-28] MEDS: PIPER-TAZ 3.375 GM 50 ML IV SCH (05:21)
[2019-08-28 06:24] LABS: BASOPHILS # (AUTO) 0.1 (0.0-0.1); BASOPHILS % 0.4 % (0.0-1.0); EOSINOPHILS # (AUTO) 0.2 (0.0-0.4); EOSINOPHILS % 1.4 % (0.0-6.0); HEMOGLOBIN 12.2 g/dL (14.0-18.0); LYMPHOCYTES % 6.8 % (18.0-39.1); MEAN CORPUSCULAR HEMOGLOBIN 27.6 pg (28-32); MEAN CORPUSCULAR VOLUME 83.7 fL (81-99); MONOCYTES # (AUTO) 1.5 (0.2-0.8); MONOCYTES % 10.6 % (4.4-11.3); NEUTROPHILS # (AUTO) 11.2 (2.1-6.9); NEUTROPHILS % 79.5 % (38.7-80.0); PLATELET COUNT 272 x10e3/uL (140-360); RED BLOOD COUNT 4.42 x10e6/uL (4.3-5.7); RED CELL DISTRIBUTION WIDTH 13.3 % (11.7-14.4)
--- NOTE | 2019-08-28 06:31 | NUR ---
{null, PATIENT IS RESTING IN THE BED, BED IS IN LOWEST POSITION AND CALL LIGHT IS WITHIN REACH. }
[2019-08-28 07:05] LABS: ALANINE AMINOTRANSFERASE 18 IU/L (0-55); ALBUMIN 2.6 g/dL (3.5-5.0); ALBUMIN/GLOBULIN RATIO 0.8 (0.8-2.0); ALKALINE PHOSPHATASE 68 IU/L (40-150); ANION GAP 13.6 mmol/L (8-16); BLOOD UREA NITROGEN 8 mg/dL (7-26); BUN/CREATININE RATIO 10 (6-25); CALCIUM 7.8 mg/dL (8.4-10.2); CARBON DIOXIDE 26 mmol/L (22-29); CHLORIDE 102 mmol/L (98-107); CREATININE, SERUM 0.81 mg/dL (0.72-1.25); EST GLOMERULAR FILTRATION RATE > 60 ML/MIN (60-); GLUCOSE 137 mg/dL (74-118); LIPASE 76 U/L (8-78); MAGNESIUM 2.1 MG/DL (1.3-2.1); PHOSPHORUS 2.2 MG/DL (2.3-4.7); POTASSIUM 3.6 mmol/L (3.5-5.1); SODIUM 138 mmol/L (136-145)
--- NOTE | 2019-08-28 07:10 | NUR ---
{null, RCD PT AT BED PT IS ALERT AND ORIENTED RESTING ON BED IV PATENT AND RUNNING 100 ML HR FLUSH BED LOW AND LOCKED CALL LIGHT IN REACH }
[2019-08-28 07:41] VITALS: BP 139/74
[2019-08-28 08:48] VITALS: BP 139/74
[2019-08-28] MEDS: KCL 40MEQ/0.9% SOD CHL 1,000 ML IV SCH (09:22)
[2019-08-28] MEDS ORDERED: LEVOFLOXACIN 500 MG TAB PO NR (11:00)
[2019-08-28] MEDS ORDERED: LEVAQUIN500 MG PO (11:25)
[2019-08-28] MEDS ORDERED: ZOFRAN8 MG PO (11:26)
[2019-08-28] MEDS ORDERED: CREON DR 12,001 EACH PO (11:27)
[2019-08-28 11:55] VITALS: BP 147/87
--- NOTE | 2019-08-28 12:03 | NUR ---
{null, PT WENT HOME IN SAFE CONDITION WITH HIS }
--- NOTE | 2019-08-28 14:58 | Discharge Summary ---
PRIMARY CARE PHYSICIAN: Dr. Dillan Jaramillo. CONSULTANTS: 1. Dr. Tomer Ford. 2. Dr. Saurav Quevedo. FINAL DIAGNOSES: 1. Acute pancreatitis, most likely secondary to dyslipidemia with triglycerides fluctuating. Latest triglyceride, however, was 151, total cholesterol 188. Amylase and lipase were 682 and 664 respectively. 2. Mild urinary tract infection. 3. Leukocytosis, 21,000 WBC now down to 14,000 WBC. SUMMARY: The patient is a 54-year-old male came in with abdominal pain. Lipase is less than 1000, but the pain was quite significant. CT scan of abdomen and pelvis along with MRCP show acute pancreatitis, but no organized peripancreatic fluid collection. No biliary duct dilatation or definitive choledocholithiasis. There is moderate hepatic steatosis. There is borderline splenomegaly. The gallbladder ultrasound showed hepatomegaly with diffuse fatty infiltrate of the liver, but no evidence of cholelithiasis. The patient was placed on supportive measure, IV fluid, pain control, antibiotics. He is doing much better now. First, he tolerated full liquid diet and now bland diet. He has no abdominal pain whatsoever when he ate. The patient is otherwise stable. He will be discharged home today. Resume home medication. He will take Creon 12K one tablet before meals, Levaquin 500 mg daily for 7 days, Zofran ODT p.r.n. for nausea and vomiting. The patient will resume his home medication, enalapril for blood pressure. The patient is stable and discharged home today. Follow up as an outpatient with Dr. Jaramillo. I recommended the patient to repeat a CT scan of the abdomen to re-evaluate the pancreas in approximately 2 to 4 weeks. MD ZEV Johsnton/VIOLET /[id number]
== END 2019-08-28 12:09 | disposition home or self-care (01) | DRG 440 ==
LOC: ER 11:12 → ERHOLD 11:41 → MED/SURG2 17:54
PROVIDERS: ADMIT Internal Medicine; ATTEND Internal Medicine
PROC: 0DB78ZX Excision of Stomach, Pylorus, Via Natural or Artificial Opening Endoscopic, Diagnostic (ICD-10-PCS; 2019-08-26)
PROC: 0DB38ZX Excision of Lower Esophagus, Via Natural or Artificial Opening Endoscopic, Diagnostic (ICD-10-PCS; principal; 2019-08-26 06:33)
DX: K85.90 Acute pancreatitis without necrosis or infection, unspecified (principal); R16.0 Hepatomegaly, not elsewhere classified; K76.0 Fatty (change of) liver, not elsewhere classified; E78.5 Hyperlipidemia, unspecified; K44.9 Diaphragmatic hernia without obstruction or gangrene; K29.70 Gastritis, unspecified, without bleeding; I10 Essential (primary) hypertension; Z11.59 Encounter for screening for other viral diseases
CPT/HCPCS: 36415; 43239; 71260; 74177; 74181; 76705; 80053; 80061; 81001; 82150; 82550; 82553; 83605; 83690; 83735; 84100; 84484; 85025; 85610; 85730; 87040; 87086; 87635; 88305; 88312; 93005; 96361; 99284; J2270; J2405; J2543; J7030; Q9967